=== PATIENT | male | born 1990 | race Caucasian/White ===

== ENCOUNTER → 2018-03-26 13:19 | Outpatient (CLI) | payer OTHER, SELFPAY ==
--- NOTE | 2018-03-26 13:22 | XR_ITS ---
XR shoulder RT 1V HISTORY: Right shoulder pain following injury ITS.REASON: axillary views ORDERING PHYSICIAN: Dharmesh Daugherty MD PATIENT AGE: 28 years Comparison: None FINDINGS: The glenohumeral joint has an unremarkable appearance. There is dislocation of the acromioclavicular joint as described in the AC joint report. IMPRESSION: Negative glenohumeral joint. Acromioclavicular dislocation
--- NOTE | 2018-03-26 13:36 | XR_ITS ---
XR AC joint BI CLINICAL INDICATION: Right shoulder pain following injury, acromioclavicular dislocation ITS.REASON: without weights ORDERING PHYSICIAN: Dharmesh Daugherty MD PATIENT AGE: 28 years Comparison: 03/23/2018 FINDINGS: Bilateral acromioclavicular joints are performed without weights. There is dislocation of the right acromioclavicular joint. The distal clavicle is displaced superiorly by approximately 3 cm and there is widening of the coracoclavicular joint space. The coracoclavicular joint space measures approximately 24 mm. IMPRESSION: Right acromioclavicular dislocation representing a type III acromioclavicular joint dislocation
== END ==
PROVIDERS: Visit Provider Orthopaedic Surgery
DX: S43.109A Unspecified dislocation of unspecified acromioclavicular joint, initial encounter (principal); S42.009A Fracture of unspecified part of unspecified clavicle, initial encounter for closed fracture
CPT/HCPCS: 73020; 73050

== ENCOUNTER → 2018-11-10 13:23 | Outpatient (CLI) | payer OTHER, SELFPAY ==
[2018-11-10 14:09] LABS: Alanine Aminotransferase 47 U/L (12-78); Albumin Level 3.7 gm/dL (3.4-5.0); Albumin/Globulin Ratio 1.1 (1.1-1.8); Alkaline Phosphatase 87 U/L (46-116); Anion Gap 14.5 mEq/L (5-15); Aspartate Amino Transferase 23 U/L (15-37); Bilirubin,Total 0.3 mg/dL (0.2-1.0); Blood Urea Nitrogen 20 mg/dL (7-18); Calcium 9.3 mg/dL (8.5-10.1); Carbon Dioxide 27 mmol/L (21.0-32.0); Chloride 103 mmol/L (98-107); Chol/HDL Ratio 2.1 (1-3.5); Cholesterol 158 mg/dL (140-200); Creatinine,Serum 0.78 mg/dL (0.70-1.30); Estimated Glomerular Filt Rate 117 ml/min (>60); GFR (African American) 141 ML/MIN (>60); Globulin 3.3 gm/dl (1.3-3.2); Glucose 98 mg/dL (74-106); HDL Cholesterol 76 mg/dL (27-67); LDL Cholesterol 73 mg/dL (0-130); Potassium 4.5 mmoL/L (3.5-5.1); Sodium 140 mmol/L (136-145); T4 (Thyroxine) 6.7 ug/dl (4.7-13.3); Thyroid Stimulating Hormone 1.76 uIU/ml (0.358-3.740); Triglycerides 46 mg/dL (30-200); VLDL Cholesterol 9 mg/dL (0-40)
[2018-11-10 14:15] LABS: Basophils % 0.5 % (0.1-2.0); Eosinophils # 0.2 K/mm3 (0.0-0.4); Eosinophils % 2.3 % (0.1-12.0); Hematocrit 46.8 % (42.0-52.0); Lymphocytes # 1.3 K/mm3 (0.7-4.5); Lymphocytes % 20.6 % (10-50); Mean Corpuscular HGB Conc 32.2 g/dL (31.8-35.4); Mean Corpuscular Hemoglobin 31.5 pg (27.0-31.2); Mean Corpuscular Volume 97.8 fl (80-94); Mean Platelet Volume 9.5 fl (7.4-10.4); Monocytes # 0.5 K/mm3 (0.1-1.0); Monocytes % 7.4 % (1.7-9.3); Neutrophils # 4.4 K/mm3 (1.8-7.8); Neutrophils % 69.2 % (37.0-80.0); Platelet Count 270 K/mm3 (142-424); Red Blood Count 4.78 M/mm3 (4.60-6.20); Red Cell Distribution Width 12.7 % (11.5-17.5); White Blood Count 6.4 K/mm3 (4.8-10.8)
[2018-11-11 08:58] LABS: Vitamin B12 338 pg/mL (232-1245)
[2018-11-11 09:31] LABS: Vitamin D 25 Hydroxy 23.2 ng/mL (30.0-100.0)
== END ==
PROVIDERS: Visit Provider Physician Assistant
DX: G80.9 Cerebral palsy, unspecified (principal); M79.604 Pain in right leg; M79.605 Pain in left leg
CPT/HCPCS: 80053; 80061; 82607; 82652; 84436; 84443; 85025

== ENCOUNTER 2024-09-27 16:24 | Emergency (ER) | payer OTHER, SELFPAY ==
[2024-09-27 16:25] VITALS: BP 131/100; PULSE 86; RESP 16; TEMP 36.5; O2SAT 98; BMI 43.8
--- NOTE | 2024-09-27 16:51 | ED_ITS ---
<Statement entered by Jon Guerin MD - 09/27/24 21:44> I was consulted by the MACRINA, and we discussed the complexity of the problems being addressed. I approved the treatment and management plan for this patient's care in the emergency department, thus performing a substantive portion of the medical decision making. Jon Guerin MD Discharge Plan Disposition Patient Disposition: Home, Self-Care Condition: Good Prescriptions Prescriptions: New levofloxacin 500 mg tablet 500 mg PO DAILY 7 Days Qty: 7 0RF metronidazole 500 mg tablet 500 mg PO BID 7 Days Qty: 14 0RF No Action prednisone 20 MG tablet 20 mg PO BID Qty: 10 0RF levofloxacin 500 MG tablet 500 mg PO DAILY Qty: 7 0RF Referrals Follow up/Referrals: Bhavesh Suazo II, MD [Staff Physician] - See instructions Provider,MD Maday [Primary Care Provider] - See instructions Activity Restrictions/Add. Instructions Additional Instructions/Restrictions: Referring you to gastroenterology for further workup. You likely need a colonoscopy however I will leave that determination between you and the application systems engineer. Follow-up with your PCP within 48 hours for recheck and evaluation.. Clinical Impressions Clinical Impression: Abdominal pain, acute Diarrhea Qualifiers: Diarrhea type: unspecified type Qualified Code(s): R19.7 - Diarrhea, unspecified Instructions Patient Instructions: DI for Acute Abdominal Pain Print Language Print Language: [place]at[place] Discharge ED Provider: Jon Guerin General Adult HPI General Chief complaint: Abdominal Pain Stated complaint: abd pain, diarrhea Time Seen by Provider: 09/27/24 16:51 History of Present Illness HPI narrative: Patient presents for evaluation of abdominal pain and diarrhea. Patient reports that he has had loose stool for approximately 1 month. It primarily is associated with eating. He has to go to the bathroom almost immediately after eating he states his stool is runny. He has not however had pain previously denies fever chills hemoptysis hematochezia melena nausea vomiting diarrhea. He reports that he has had 4-5 loose bowel movements with abdominal cramping in the last 24 hours however. Again no fever vomiting nausea hemoptysis hematochezia melena hematemesis noted. Related Data Previous Rx's ?Medication ?Instructions ?Recorded levofloxacin 500 mg tablet 500 mg PO DAILY #7 tabs 09/22/19 prednisone 20 mg tablet 20 mg PO BID #10 tabs 09/22/19 levofloxacin 500 mg tablet 500 mg PO DAILY 7 days #7 tabs 09/27/24 metronidazole 500 mg tablet 500 mg PO BID 7 days #14 tabs 09/27/24 Allergies Allergy/AdvReac Type Severity Reaction Status Date / Time No Known Allergies Allergy Verified 09/22/19 05:17 [facility] Disclaimer: The information contained in this section may have been updated after the patient was seen, as this information can be updated by other users. Medical History (Updated 09/27/24 @ 19:43 by LILLIE Jorgensen) Vitamin D deficiency Social History Smoking Status: Current every day smoker tobacco type: cigarettes packs per day: 1 and smokeless tobacco second hand exposure: Yes alcohol intake: never current occupational status: unemployed Travel in the last 8 weeks: None Have you lived/traveled outside US in past 30 days?: No Contact w/someone who lives/traveled outside US past 30 days?: No Exposure to someone with infectious disease in past 14 days?: No Do you have a fever (greater than 100.4 F or 38 C)?: No Have you tested positive for COVID-19: No Exposed to someone with COVID-19 in past 14 days?: No Do you have a sore throat?: No Do you have a cough?: No Do you have any weakness?: No Do you have any diarrhea?: Yes Are you experiencing any unusual bleeding?: No Do you have any muscle aches/pain?: No Do you have any abdominal pain?: Yes Are you experiencing loss of taste or smell?: No Other Medical History Have you received the Flu Vaccine for this season: No Have you received the Pneumonia Vaccine: No ROS Obtained: Yes Systems reviewed as appropriate & no additional complaints except as documented Physical Exam General General appearance: alert and in no apparent distress Respiratory Respiratory exam: Present normal lung sounds bilaterally Cardiovascular Cardiovascular exam: Present regular rate Neurological Exam Neurological exam: Present alert and oriented X3 Medical Decision Making Medical Records Medical records reviewed: Yes I reviewed the patient's medical records. Screening: Per USPSTF and CDC recommendations, given the prevalence of disease in our region, it is our hospital?s policy to screen for HIV and viral Hepatitis for all patients aged 18 and over and those with ongoing risk factors. Erick Inquiry Pt receiving controlled substance: No Vital Signs: 09/27/24 16:25 09/27/24 18:53 09/27/24 20:42 Temperature 97.7 F 98.0 F Temperature Source Oral Oral Pulse Rate 87 91 H Pulse Rate [Left Radial] 86 Respiratory Rate 16 18 Blood Pressure 121/82 122/93 H Blood Pressure [Right Arm] 131/100 H Blood Pressure Mean [Right Arm] 110 Blood Pressure Source Automatic Cuff Blood Pressure Source [Right Arm] Automatic Cuff Blood Pressure Position Sitting Blood Pressure Position [Right Arm] Sitting 02 Sat by Pulse Oximetry 98 96 Oxygen Delivery Method Room Air Room Air Room Air Lab Data Lab results reviewed: Yes I reviewed the patient's lab results. Lab Results 09/27/24 17:45: WBC 14.5 H, RBC 5.04, Hgb 16.0, Hct 48.0, MCV 95.3 H, MCH 31.7 H , MCHC 33.3, RDW 13.1, Plt Count 291, MPV 9.1, Neut % (Auto) 82.6 H, Lymph % (Auto) 11.8, [place] % (Auto) 4.6, Eos % (Auto) 0.4, Baso % (Auto) 0.5, Neut # (Auto) 12.0 H, Lymph # (Auto) 1.7, [place] # (Auto) 0.7, Eos # (Auto) 0.1, Baso # (Auto) 0.1, Sodium 133 L, Potassium 4.3, Chloride 105, Carbon Dioxide 27, Anion Gap 5.3, BUN 14, Creatinine 0.80, Estimated Creat Clear 140, Estimated GFR 109, Est GFR ( Amer) 132, Glucose 101 H, Calcium 9.0, Magnesium 2.3, Total Bilirubin 0.6, AST 38, ALT 42, Alkaline Phosphatase 83, Total Protein 7.3, Albumin 4.4, Globulin 2.9, Albumin/Globulin Ratio 1.5, Lipase 59 09/27/24 20:20: Urine Color Yellow, Urine Appearance Clear, Urine pH 5.5, Ur Specific [place] 1.010, Urine Protein Negative, Urine Glucose (UA) Negative, Urine Ketones Negative, Urine Blood Negative, Urine Nitrate Negative, Urine Bilirubin Negative, Urine Urobilinogen 0.2, Ur Leukocyte Esterase Negative, Urine RBC 3-5, Urine WBC 3-5, Ur Squamous Epith Cells 3-5, Urine Bacteria 1+ 09/27/24 17:45 09/27/24 17:45 Orders (Tests/Meds): ED MEDICATIONS Discontinued Medications Generic Name Dose Route Start Last Admin Trade Name Freq PRN Reason Stop Dose Admin Iopamidol 75 ml 09/27/24 18:30 09/27/24 18:31 Iopamidol-370 (76%);100ml Bottle IV 09/27/24 18:31 75 ml ONCE ONE Administration Ondansetron HCl 4 mg 09/27/24 17:02 09/27/24 17:18 Ondansetron 4mg Odt SL 09/27/24 17:03 4 mg ONCE ONE Administration Sodium Chloride 10 ml 09/27/24 18:30 09/27/24 18:31 Sodium Chloride 0.9% 10ml Syr (Rad Only) IV 09/27/24 18:31 10 ml ONCE ONE Administration ORDERS Category Date Time Status CT abdomen pelvis w con Stat Cat Scan 09/27/24 17:02 Completed CBC w/Auto Diff [Complete Blood Count Auto Diff] Stat Lab 09/27/24 17:45 Completed CMP [Comprehensive Metabolic Panel] Stat Lab 09/27/24 17:45 Completed HIV (1&2) Antibody Rapid Stat Lab 09/27/24 17:45 Received Hep C Ab with Reflex to RNA Stat Lab 09/27/24 17:45 Received Lipase Stat Lab 09/27/24 17:45 Completed Magnesium Stat Lab 09/27/24 17:45 Completed UA [Urinalysis and Microscopic] Stat Lab 09/27/24 20:20 Completed Medical Decision Narrative: In summary patient is a 34-year-old male who presents to the emergency department for evaluation of abdominal pain and diarrhea. Patient is hemodynamically stable upon arrival, afebrile. Physical exam is remarkable for diffuse but more focally so left lower quadrant mild abdominal tenderness to palpation without rebound or guarding or rigidity. Bowel sounds normal active.. Differential diagnosis includes gastroenteritis versus diverticulitis versus urinary tract infection versus kidney stone etc. Initial workup will be conducted with hematologic labs urinalysis CT scan abdomen pelvis diarrhea panel. Initial interventions include crystalloid bolus Tylenol Zofran. Initial workup reviewed by me shows that his hematologic labs are nonactionable and my informal interpretation of the CT scan abdomen pelvis shows significant distal diverticulosis and some pericolonic stranding without perforation or significant bowel wall thickening. Urinalysis shows 3-5 red cells 3-5 white cells 3-5 epithelial cells and 1+ bacteria upon repeat evaluation patient reported significant improvement in his constitutional symptoms after initial intervention. Given this patient is appropriate for discharge with a prescription for Levaquin and Flagyl with first doses given here, referral to gastroenterology for further evaluation and care referral back to his PCP for recheck and strict return precautions Critical Care Critical Care Time Critical Care Time: No
--- NOTE | 2024-09-27 17:02 | CT_ITS ---
PROCEDURE INFORMATION: Exam: CT Abdomen And Pelvis With Contrast Exam date and time: 09/27/2024 6:18 PM Age: 34 years old Clinical indication: Other: Diarrhea abdominal pain TECHNIQUE: Imaging protocol: Computed tomography of the abdomen and pelvis with contrast. Radiation optimization: All CT scans at this facility use at least one of these dose optimization techniques: automated exposure control; mA and/or kV adjustment per patient size (includes targeted exams where dose is matched to clinical indication); or iterative reconstruction. Contrast material: ISOVUE; Contrast volume: 75 ml; Contrast route: IV; COMPARISON: CR PEL1V XR pelvis 1-2V 03/23/2018 3:18 PM FINDINGS: Liver: Punctate low-density liver lesions are too small to characterize. No hepatomegaly. Gallbladder and biliary ducts: Normal. No calcified stones. No ductal dilation. Pancreas: Normal. No ductal dilation. Spleen: Normal. No splenomegaly. Adrenal glands: Normal. No mass. Kidneys and ureters: Punctate low-density lesion in the upper pole of the left kidney is too small to characterize. No other lesions. No hydronephrosis. Stomach and bowel: Mild distal colonic diverticulosis without diverticulitis. No dilated or thickened bowel loops. Appendix: No evidence of appendicitis. Intraperitoneal space: Unremarkable. No free air. No significant fluid collection. Vasculature: Unremarkable. No abdominal aortic aneurysm. Lymph nodes: Calcified lymph nodes in the right hilum. No adenopathy. Urinary bladder: Unremarkable as visualized. Reproductive: Unremarkable as visualized. Bones/joints: Unremarkable. No acute fracture. Soft tissues: Small fat containing bilateral inguinal hernias, larger on the right. Small fat containing umbilical hernia. IMPRESSION: No acute findings. COMMENTS: Consistent with the [employer]'s Incidental Findings Committee white paper (J Am Raine Radiol 2018): Any incidental renal lesion less than 1 cm or classified as too small to characterize, or any incidental cystic renal lesion characterized as simple-appearing, is likely benign. No follow-up imaging is recommended for these lesions per consensus recommendations based on imaging criteria.
[2024-09-27] MEDS: ONDANSETRON 4MG ODT 4 MG SL (17:18)
[2024-09-27 18:02] LABS: Basophils # 0.1 K/mm3 (0-0.2); Basophils % 0.5 % (0.1-2.0); Eosinophils # 0.1 K/mm3 (0.0-0.4); Eosinophils % 0.4 % (0.1-12.0); Lymphocytes # 1.7 K/mm3 (0.7-4.5); Lymphocytes % 11.8 % (10-50); Mean Corpuscular HGB Conc 33.3 g/dL (31.8-35.4); Mean Corpuscular Hemoglobin 31.7 pg (27.0-31.2); Mean Corpuscular Volume 95.3 fl (80-94); Mean Platelet Volume 9.1 fl (7.4-10.4); Monocytes # 0.7 K/mm3 (0.1-1.0); Monocytes % 4.6 % (1.7-9.3); Neutrophils % 82.6 % (37.0-80.0); Platelet Count 291 K/mm3 (142-424); Red Blood Count 5.04 M/mm3 (4.60-6.20); Red Cell Distribution Width 13.1 % (11.5-17.5); White Blood Count 14.5 K/mm3 (4.8-10.8)
[2024-09-27 18:04] LABS: Albumin Level 4.4 g/dl (3.5-5.0); Chloride 105 mmol/L (98-107); Sodium 133 mmol/L (136-145)
[2024-09-27 18:05] LABS: Potassium 4.3 mmoL/L (3.5-5.1)
[2024-09-27 18:07] LABS: Alanine Aminotransferase 42 U/L (12-78); Anion Gap 5.3 mEq/L (5-15); Aspartate Amino Transferase 38 U/L (17-59); Blood Urea Nitrogen 14 mg/dl (9-20); Carbon Dioxide 27 mmol/L (22.0-30.0); Creatinine Clearance Estimated 140 mL/min (50-200); Estimated Glomerular Filt Rate 109 ml/min (>60); GFR (African American) 132 ML/MIN (>60)
[2024-09-27 18:08] LABS: Albumin/Globulin Ratio 1.5 (1.1-1.8); Alkaline Phosphatase 83 U/L (38-126); Bilirubin,Total 0.6 mg/dl (0.2-1.3); Globulin 2.9 g/dL (1.3-3.2); Glucose 101 mg/dl (74-100); Lipase 59 U/L (23-300); Magnesium 2.3 mg/dl (1.6-2.3); Total Protein,Serum 7.3 g/dl (6.3-8.2)
[2024-09-27] MEDS: SODIUM CHLORIDE 0.9% 10ML SYR (RAD ONLY) 10 ML IV (18:31)
[2024-09-27] MEDS: IOPAMIDOL-370 (76%);100ML BOTTLE 75 ML IV (18:31)
[2024-09-27 18:53] VITALS: BP 121/82; PULSE 87; O2SAT 96
--- NOTE | 2024-09-27 19:05 | PC.NURSE ---
pt was setting in chair no needs at this time
[2024-09-27 20:26] LABS: Microscopic, Urine URINE MICROSCOPIC (MICROSCOPIC)
[2024-09-27 20:36] LABS: Appearance,Urine CLEAR (Clear); Bilirubin,Urine Negative (Negative); Blood, Urine Negative (Negative); Color,Urine YELLOW (Yellow); Glucose,Urine (UA) Negative (Negative); Ketones,Urine Negative (Negative); Leukocyte Esterase,Urine Negative (Negative); Nitrate,Urine Negative (Negative); PH,Urine 5.5 (5.0-8.5); Protein,Urine Negative (Negative); Urobilinogen,Urine 0.2 EU/dl (0.2)
[2024-09-27 20:42] VITALS: BP 122/93; PULSE 91; RESP 18; TEMP 36.7; O2SAT 97
[2024-09-27 21:04] LABS: Bacteria,Urine 1+ /lpf
[2024-09-28 11:34] LABS: HIV Combo NEGATIVE (Negative)
[2024-09-29 08:48] LABS: HCV Ab Non Reactive (Non Reactive)
== END 2024-09-27 20:45 | disposition home or self-care (01) ==
PROVIDERS: Physician Assistant; Emergency Provider Emergency Medicine
DX: R10.9 Unspecified abdominal pain (principal); R19.7 Diarrhea, unspecified
CPT/HCPCS: 74177; 80053; 81001; 83690; 83735; 85025; 86803; 87389; 99285; Q0162; Q9967

== ENCOUNTER 2024-11-23 22:53 | Observation (INO) | payer OTHER, SELFPAY ==
--- NOTE | 2024-11-23 22:51 | ECG_ITS ---
APPROVED REPORT Exam: Resting ECG HR:88 bpm ECG Measurements Heart Rate 88 AXES LA 140 P 68 QRSd 82 QRS 62 QT 332 T 57 QTc 377 Conclusion SINUS RHYTHM WITH SINUS ARRHYTHMIA NORMAL ECG No STEMI Electronically signed by : CINDY JUÁREZ, 11/24/2024 07:16:40
[2024-11-23 22:54] VITALS: BP 142/103; PULSE 88; RESP 20; TEMP 36.4; O2SAT 97; BMI 36.6
[2024-11-23 22:59] VITALS: PULSE 88
[2024-11-23 23:00] VITALS: BP 149/95; PULSE 91; RESP 18; O2SAT 97
--- NOTE | 2024-11-23 23:08 | XR_ITS ---
PROCEDURE INFORMATION: Exam: XR Chest Exam date and time: 11/23/2024 11:05 PM Age: 34 years old Clinical indication: Pain; Chest pressure; Additional info: L upper chest pain TECHNIQUE: Imaging protocol: Radiologic exam of the chest. Views: 2 views. COMPARISON: CR XR CHEST 2V 09/22/2019 5:33 AM FINDINGS: Lungs: Unremarkable. No consolidation. Pleural spaces: Unremarkable. No pleural effusion. No pneumothorax. Heart/Mediastinum: Unremarkable. No cardiomegaly. Bones/joints: Healed fracture distal right clavicle. IMPRESSION: No acute cardiopulmonary findings.
[2024-11-23 23:12] LABS: Basophils # 0.1 K/mm3 (0-0.2); Basophils % 0.8 % (0.1-2.0); Eosinophils # 0.2 K/mm3 (0.0-0.4); Eosinophils % 1.9 % (0.1-12.0); Hematocrit 46.2 % (42.0-52.0); Hemoglobin 15.4 g/dL (14.1-18.0); Lymphocytes # 2.5 K/mm3 (0.7-4.5); Mean Corpuscular HGB Conc 33.3 g/dL (31.8-35.4); Mean Corpuscular Hemoglobin 31.2 pg (27.0-31.2); Mean Corpuscular Volume 93.7 fl (80-94); Mean Platelet Volume 11.7 fl (7.4-10.4); Monocytes # 0.7 K/mm3 (0.1-1.0); Monocytes % 7.6 % (1.7-9.3); Neutrophils % 63.5 % (37.0-80.0); Platelet Count 294 K/mm3 (142-424); Red Blood Count 4.93 M/mm3 (4.60-6.20); Red Cell Distribution Width 12.3 % (11.5-17.5); White Blood Count 9.5 K/mm3 (4.8-10.8)
[2024-11-23 23:14] VITALS: BP 149/95; PULSE 95; RESP 16; O2SAT 99
[2024-11-23] MEDS: NITROGLYCERIN 0.4MG SL TABLET 0.4 MG SL ×2 (23:14→23:46)
[2024-11-23 23:15] LABS: Albumin Level 4.2 g/dl (3.5-5.0); Chloride 104 mmol/L (98-107); Sodium 141 mmol/L (136-145)
[2024-11-23] MEDS: ASPIRIN 81MG CHEWABLE TABLET 324 MG PO (23:15)
--- NOTE | 2024-11-23 23:15 | PC.NURSE ---
Pt ambulatory to CT scan
[2024-11-23 23:16] LABS: Potassium 4.1 mmoL/L (3.5-5.1)
[2024-11-23 23:18] LABS: Alanine Aminotransferase 40 U/L (12-78); Albumin/Globulin Ratio 1.6 (1.1-1.8); Alkaline Phosphatase 75 U/L (38-126); Anion Gap 11.1 mEq/L (5-15); Aspartate Amino Transferase 36 U/L (17-59); Bilirubin,Total 0.3 mg/dl (0.2-1.3); Blood Urea Nitrogen 13 mg/dl (9-20); Carbon Dioxide 30 mmol/L (22.0-30.0); Creatinine Clearance Estimated 160 mL/min (50-200); Estimated Glomerular Filt Rate 95 ml/min (>60); GFR (African American) 116 ML/MIN (>60); Globulin 2.7 g/dL (1.3-3.2); Total Protein,Serum 6.9 g/dl (6.3-8.2)
[2024-11-23 23:19] LABS: Calcium 8.9 mg/dl (8.4-10.2); Glucose 101 mg/dl (74-100)
--- NOTE | 2024-11-23 23:25 | ED_ITS ---
Discharge Plan Disposition Patient Disposition: Admitted Prescriptions Prescriptions: No Action No Known Home Medications Referrals Follow up/Referrals: Provider,Referral, [Primary Care Provider] - See instructions Clinical Impressions Clinical Impression: Atypical chest pain Stand Alone Forms Stand Alone Forms: Work/School Release Print Language Print Language: Indian Discharge ED Provider: Sommer Ritchie General Chief Complaint: Chest Pain Stated Complaint: Chest pain Time Seen by Provider: 11/23/24 23:03 Mode of Arrival: Ambulatory Source of Information: Patient Limitations: No Limitations Description of Symptoms (Recalled from ER Triage Doc. by RN): pt presents with c/o left sided constant chest pain with associated numbness and tinging to left arm hand that began approx 2 hours ago while picking up his child. Denies N/V. Rates pain 05/22 Reports increase in SOA from his normal. History of Present Illness HPI narrative: 34-year-old male presents to the ER with complaints of approximately 8 hours of left-sided chest pain, but 2 hours prior to arrival the pain began radiating to his left arm and the left arm felt tingly. He reports he was fairly active today before the chest pain started, he reports that the activity did not cause the chest pain. He states around 3 PM, 8 hours prior to arrival, he started having sharp left upper chest pain. He states he was able to tolerate it and did not think much of it. He states this evening after picking up his kid and sitting down at the table for dinner he noticed the pain going down the left arm with associated tingling sensation. He states the left upper chest pain was worsening at that time. He denies nausea, vomiting, dizziness, headache, radiation to the back or jaw, no cough, congestion, fevers, chills, or other associated symptoms. 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 He states his baseline shortness of breath is not changed from normal. Related Data Home Medications ?Medication ?Instructions ?Recorded ?Confirmed No Known Home Medications 11/23/24 11/23/24 Allergies Allergy/AdvReac Type Severity Reaction Status Date / Time No Known Allergies Allergy Verified 09/22/19 05:17 [facility] Disclaimer: The information contained in this section may have been updated after the patient was seen, as this information can be updated by other users. Medical History (Updated 11/24/24 @ 00:13 by Sommer Ritchie MD) Vitamin D deficiency Social History Smoking Status: Never smoker second hand exposure: Yes alcohol intake: never current occupational status: unemployed Travel in the last 8 weeks: None Other Medical History Have you received the Flu Vaccine for this season: No Have you received the Pneumonia Vaccine: No ROS Obtained: Yes Systems reviewed as appropriate & no additional complaints except as documented per HPI Physical Exam General General appearance: alert, in no apparent distress and obese Head Head exam: atraumatic and normocephalic Eye Eye exam: Present PERRL, EOMI and other (Strabismus present, baseline) ENT ENT exam: Present mucous membranes moist Neck Neck exam: Present normal inspection and full ROM Chest Chest inspection: Present symmetric chest wall rise; Absent tenderness (No reproducible chest wall tenderness) Respiratory Respiratory exam: Present normal lung sounds bilaterally; Absent respiratory distress, wheezes or stridor Cardiovascular Cardiovascular exam: Present regular rate and normal rhythm Abdominal Exam Abdominal exam: Present soft; Absent distention, tenderness, guarding or rebound Extremities Exam Extremities exam: Present full ROM; Absent edema Neurological Exam Neurological exam: Present alert, oriented X3 and other (No pronator drift); Absent motor sensory deficit (5 out of 5 strength in all extremities, no sensory deficits despite patient complaining of numbness and tingling in the left upper extremity. 2 point discrimination intact, proprioception intact, NIH 0, no deficits) Psychiatric Psychiatric exam: Present normal affect and normal mood Skin Skin exam: Present warm and dry HEART Score HEART Score HEART Score assessment performed?: Yes History (anamnesis): Slightly suspicious ECG: Normal Age: <45 years Risk factors: 1-2 risk factors Troponin: </= normal limit HEART Score: 1 Critical Care Critical Care Time Critical Care Time: No Medical Decision Making Medical Records Medical records reviewed: Yes I reviewed the patient's medical records. Erick Inquiry Pt receiving controlled substance: No Vital Signs Vital Signs: 11/23/24 22:54 11/23/24 22:59 11/23/24 23:00 Temperature 97.5 F L Temperature Source Temporal Artery Scan Pulse Rate 88 91 H Pulse Rate [Radial] 88 Respiratory Rate 20 18 Blood Pressure 149/95 H Blood Pressure [Right Arm] 142/103 H Blood Pressure Mean [Right Arm] 116 Blood Pressure Source [Right Arm] Automatic Cuff Blood Pressure Position [Right Arm] Sitting 02 Sat by Pulse Oximetry 97 97 Oxygen Delivery Method Room Air 11/23/24 23:14 11/23/24 23:30 11/23/24 23:44 Temperature Temperature Source Pulse Rate 95 H 94 H 84 Pulse Rate [Radial] Respiratory Rate 16 20 18 Blood Pressure 149/95 H 138/97 H 133/90 Blood Pressure [Right Arm] Blood Pressure Mean [Right Arm] Blood Pressure Source [Right Arm] Blood Pressure Position [Right Arm] 02 Sat by Pulse Oximetry 99 95 97 Oxygen Delivery Method Room Air Lab Data Labs: Lab Results 11/23/24 22:55: WBC 9.5, RBC 4.93, Hgb 15.4, Hct 46.2, MCV 93.7, MCH 31.2, MCHC 33.3, RDW 12.3, Plt Count 294, MPV 11.7 H, Neut % (Auto) 63.5, Lymph % (Auto) 26.0, [place] % (Auto) 7.6, Eos % (Auto) 1.9, Baso % (Auto) 0.8, Neut # (Auto) 6.0, Lymph # (Auto) 2.5, [place] # (Auto) 0.7, Eos # (Auto) 0.2, Baso # (Auto) 0.1, Sodium 141, Potassium 4.1, Chloride 104, Carbon Dioxide 30, Anion Gap 11.1, BUN 13, Creatinine 0.90, Estimated Creat Clear 160, Estimated GFR 95, Est GFR ( Amer) 116, Glucose 101 H, Calcium 8.9, Total Bilirubin 0.3, AST 36, ALT 40, Alkaline Phosphatase 75, Troponin I < 0.01, Total Protein 6.9, Albumin 4.2, Globulin 2.7, Albumin/Globulin Ratio 1.6 11/23/24 22:55 11/23/24 22:55 Response Orders (Tests/Meds): ED MEDICATIONS Discontinued Medications Generic Name Dose Route Start Last Admin Trade Name Clintonq PRN Reason Stop Dose Admin Aspirin 324 mg 11/23/24 23:08 11/23/24 23:15 Aspirin 81mg Chewable Tablet PO 11/23/24 23:09 324 mg ONCE ONE Administration Nitroglycerin 0.4 mg 11/23/24 23:08 11/23/24 23:14 Nitroglycerin 0.4mg Sl Tablet SL 11/23/24 23:09 0.4 mg ONCE ONE Administration Nitroglycerin 0.4 mg 11/23/24 23:42 11/23/24 23:46 Nitroglycerin 0.4mg Sl Tablet SL 11/23/24 23:43 0.4 mg ONCE ONE Administration ORDERS Category Date Time Status CXR 2 view (NOT portable) [XR chest 2V] Stat Exams 11/23/24 23:08 Completed CBC w/Auto Diff [Complete Blood Count Auto Diff] Stat Lab 11/23/24 22:55 Completed CMP [Comprehensive Metabolic Panel] Stat Lab 11/23/24 22:55 Completed Trop I [Troponin I] Stat Lab 11/23/24 22:55 Completed Troponin I Q3H Lab 11/24/24 02:15 Ordered Troponin I Q3H Lab 11/24/24 05:15 Ordered MDM Narrative Medical Decision Narrative: In summary, this 34-year-old male with history of cerebral palsy, asthma which are comorbidities of current condition and increased overall morbidity presents to the emergency department today with left-sided chest pain radiating to left upper extremity. On initial evaluation patient is hemodynamically stable, afebrile, no reproducible chest pain on exam, cardiopulmonary exam is benign with good air movement, saturating well on room air, NIH 0, GCS 15, no neurologic deficits despite patient complaining of numbness and tingling in the left upper extremity he does not have identifiable sensory deficits, light touch, temperature, proprioception and 2 point discrimination are intact. Differential diagnosis includes but is not limited to ACS, I considered PE but patient is PERC negative, also considered esophageal spasm, electrolyte abnormality, muscle spasm, MSK etiology. Based on these concerns, I ordered serum labs, cardiac workup, chest x-ray. ECG personally interpreted demonstrates normal sinus rhythm, rate 88, normal axis, normal MO and QTc, no STEMI, normal-appearing ECG. Patient received aspirin, single dose sublingual nitro initially for treatment. Labs personally reviewed demonstrate no leukocytosis or anemia, platelets normal, CMP nonactionable with normal electrolytes, good kidney and liver function, initial troponin undetectably low less than 0.01. XR personally interpreted demonstrates no acute intrathoracic abnormality, no lobar infiltrate, no pneumothorax, see radiology read for final interpretation. On reassessment patient reports that the pain in his chest has been somewhat relieved by the nitroglycerin but he still does have pain. His vitals tolerated the nitro well and he has not had any side effects such as headache, additional nitroglycerin being administered to the patient for symptomatic treatment. Second nitro was tolerated well by the patient. His vitals remained stable. He states his breathing feels improved though he never complained of shortness of breath to me. He does still report having some chest pain but reports the pain in his arm is improving since receiving the nitro. Since he has taken multiple doses of nitro with some modification of his pain but not complete resolution, despite his reassuring workup thus far I do believe patient requires admission to the hospital for continued workup, monitoring, and management. I discussed this with the patient who is concerned that his has to work in the morning and they have multiple children at home that he typically takes care of during the day. We discussed this with his and are providing her with a work note. By phone I updated her on the patient's status, she understands and was grateful for the update. I discussed this case with the hospitalist and reviewed his labs and reassuring imaging but persistent pain. Hospitalist accepted the patient for admission, he was admitted in stable condition.
[2024-11-23 23:30] VITALS: BP 138/97; PULSE 94; RESP 20; O2SAT 95
[2024-11-23 23:35] LABS: Troponin I < 0.01 ng/ml (0.00-0.034)
[2024-11-23 23:44] VITALS: BP 133/90; PULSE 84; RESP 18; O2SAT 97
[2024-11-24] VITALS (10 sets, daily range): BP systolic 117–142; BP diastolic 62–88; PULSE 70–100; RESP 16–18; TEMP 36.4–36.7; O2SAT 97–100; BMI 43.6
--- NOTE | 2024-11-24 00:23 | PC.NURSE ---
report given to second floor RN, Patient is stable but rates pain 8/10 after second dose of Nitro. Patient states he is able to breath easier. Patient vitals stable upon admission. AO x 4, GCS 15.
--- NOTE | 2024-11-24 00:27 | PC.NURSE ---
Patient arrived to floor via wheelchair from ED at 00:25.
--- NOTE | 2024-11-24 00:31 | P.HP_ITS ---
<Statement entered by Melvin Yeung MD - 11/30/24 14:21> I personally examined the patient and agree with the plan of care outlined by the [facility]. History of Present Illness *Admission Date: 11/24/24 *Reason for visit:: Chest pain *History of present illness: This is a 34-year-old male who has a past medical history significant for bronchitis, vitamin D deficiency, and cerebral palsy who presents with a chief complaint of chest pain. Due to patient's symptoms, he presented to the emergency room for evaluation. While in the emergency room, chest x-ray was negative for any acute cardiopulmonary process. Patient's initial troponin was negative. EKG revealed a sinus arrhythmia, QTc of 377, normal axis. EKG failed to reveal any ST segment or T wave abnormalities. Patient did receive nitro while in the emergency room and did have some improvement of his chest pain and shortness of breath. As a result, patient has been admitted for further management. During my evaluation patient, patient states his chest pain started around 1500 hrs. and has been ongoing for the last 8 hours. He reports that he has a left chest wall pain that radiates to the right arm with some tingling, has some mild shortness of breath that was relieved with nitro, and has a ongoing duration. Patient does voice having a family history of heart disease but has no known cardiac complications himself. Patient states he has chronic lymphedema to the right lower extremity and he is denying any PND, orthopnea, lightheadedness, dizziness, fever, chills, rigors, nausea, vomiting, diarrhea. Patient did voice have an ischemic workup while he was in high school but no further cardiac evaluation since then. Additional pertinent vitals obtained include blood glucose of 101. PFSH [facility] Disclaimer: The information contained in this section may have been updated after the patient was seen, as this information can be updated by other users. Medical History Vitamin D deficiency Family History Other Family history of COPD (chronic obstructive pulmonary disease) Family history of diabetes mellitus Family history of heart disease Social History Smoking Status: Never smoker second hand exposure: Yes alcohol intake: never current occupational status: unemployed Travel in the last 8 weeks: None Other Medical History Have you received the Flu Vaccine for this season: No Have you received the Pneumonia Vaccine: No Review of Systems Review of Systems Review of systems:: pertinent systems reviewed and negative unless documented below Constitutional Constitutional: Reports system reviewed and no additional complaints, except as documented Eyes Eyes: Reports system reviewed and no additional complaints, except as documented ENT Ears, Nose, Mouth, and Throat: Reports system reviewed and no additional complaints, except as documented *Cardiovascular Cardiovascular: Reports chest pain, Reports chest pain at rest and Reports dys pnea *Respiratory Respiratory: Reports dyspnea *Gastrointestinal Gastrointestinal: Reports system reviewed and no additional complaints, except as documented *Genitourinary Genitourinary: Reports system reviewed and no additional complaints, except as d ocumented *Musculoskeletal Musculoskeletal: Reports system reviewed and no additional complaints, except as documented Integumentary/Breasts Skin/Breast: Reports system reviewed and no additional complaints, except as documented *Neurologic Neurologic: Reports system reviewed and no additional complaints, except as documented Psychiatric Psychiatric: Reports system reviewed and no additional complaints, except as documented Endocrine Endocrine: Reports system reviewed and no additional complaints, except as documented Hematologic/Lymphatic Hematologic/Lymphatic: Reports system reviewed and no additional complaints, except as documented Allergic/Immunologic Allergic/Immunologic: Reports system reviewed and no additional complaints, except as documented Meds Home Medications and Allergies Home Medications ?Medication ?Instructions ?Recorded ?Confirmed ?Type No Known Home Medications 11/24/24 11/24/24 History New Prescriptions to Start Prescriptions: Allergies Allergy/AdvReac Type Severity Reaction Status Date / Time No Known Allergies Allergy Verified 09/22/19 05:17 Exam Data for Last 24 hours Vital signs and Labs for Last 24 Hours: Temp Pulse Resp BP Pulse Ox O2 Del Method 98.1 F 80 16 123/88 97 Room Air 11/24/24 00:18 11/24/24 00:18 11/24/24 00:18 11/24/24 00:18 11/23/24 23:44 11/24/24 00:18 Laboratory Results - last 24 hr 11/23/24 22:55: WBC 9.5, RBC 4.93, Hgb 15.4, Hct 46.2, MCV 93.7, MCH 31.2, MCHC 33.3, RDW 12.3, Plt Count 294, MPV 11.7 H, Neut % (Auto) 63.5, Lymph % (Auto) 26.0, [place] % (Auto) 7.6, Eos % (Auto) 1.9, Baso % (Auto) 0.8, Neut # (Auto) 6.0, Lymph # (Auto) 2.5, [place] # (Auto) 0.7, Eos # (Auto) 0.2, Baso # (Auto) 0.1, Sodium 141, Potassium 4.1, Chloride 104, Carbon Dioxide 30, Anion Gap 11.1, BUN 13, Creatinine 0.90, Estimated Creat Clear 160, Estimated GFR 95, Est GFR ( Amer) 116, Glucose 101 H, Calcium 8.9, Total Bilirubin 0.3, AST 36, ALT 40, Alkaline Phosphatase 75, Troponin I < 0.01, Total Protein 6.9, Albumin 4.2, Globulin 2.7, Albumin/Globulin Ratio 1.6 I & O for Last 24 hours: Intake & Output 11/21/24 11/22/24 11/23/24 11/24/24 23:59 23:59 23:59 23:59 Weight 99.79 kg Constitutional Constitutional: no acute distress and cooperative *Routine HEENT Exam Head: Present normocephalic and atraumatic Eye: Present PERRL ENT: Present mucous membranes moist *Routine Neck Exam Neck: Present full ROM and trachea midline Routine Chest/Breast/Axilla Exam Chest wall: Present tenderness Comments: Patient has tenderness to left chest wall with palpation *Routine Respiratory Exam Respiratory: Present normal respiratory effort, able to speak in complete sentences and symmetric chest movement *Routine Cardiovascular Exam Cardiovascular: Present RRR, Normal S1 and Normal S2 *Routine Abdominal Exam Abdominal: Present soft and normoactive bowel sounds *Routine Rectal Exam Rectal:: deferred *Routine Genitalia Exam Genitalia:: deferred *Routine Extremities Exam Extremities: Present edema Comments: Lymphedema to right lower extremity Routine Back/Spine/Pelvis Exam Back/Spine: Present full ROM *Routine Skin Exam Skin: Present dry and warm *Routine Neurological Exam Neurological: Present alert, oriented X3, CN II-XII intact and normal speech Routine Psychiatric Exam Psychiatric: Present normal affect, normal thought process, cooperative, good insight and good judgment H&P: Result Impressions This is a 34-year-old male who presents with chest pain while at rest. Current heart score is 0. He did receive nitro while in the emergency room that improved his shortness of breath. Patient has minimal risk factors for ACS; however, with chest pain at rest, rules in for angina that is unstable Assessment and Plan *Assessment and plan (1) Chest pain: Status: Acute Qualifiers: Chest pain type: unspecified Qualified Code(s): R07.9 - Chest pain, unspecified Category: Medical Code(s): R07.9 - Chest pain, unspecified (2) Angina at rest: Status: Acute Category: Medical Code(s): I20.89 - Other forms of angina pectoris Plan Assessment: Chest pain -Patient has a heart score of 0 -Will consult cardiology in the a.m. -Obtain 2D echo -Will trend troponin every 6 -Obtain D-dimer -Patient did receive full-strength aspirin -Will consider 81 mg daily-will discuss with attending Stable versus unstable angina -Will provide Nitropaste as needed for chest pain Plan: Admit patient to the MedSur unit on telemetry Activity as tolerated Vital signs every 4 hours Consult cardiology in a.m. Regular diet CBC/BMP daily Lipid panel in a.m. 40 mg enoxaparin subcu for DVT prophylax 5 mg [place] p.o. every 4 hours PMR pain 2 mg morphine IV push every 4 hours. Severe pain 4 mg Zofran IV push every 8 hours pain nausea vomit Full code I will discuss this case with attending physician Dr. Yeung and I look forward to more input
[2024-11-24 04:06] LABS: Troponin I < 0.01 ng/ml (0.00-0.034)
[2024-11-24] MEDS: HYDROCODONE/APAP 5/325 MG TABLET 1 TAB PO (04:26)
--- NOTE | 2024-11-24 04:44 | PC.NURSE ---
Pt reports to admitting nurse that he is supposed to be taking BP med ( does not know the name ) an inhaler ( purple and white but does not know the name ) and has been on Bipap in the past but not now. He has requested assistance during hospitalization for resources upon discharge
[2024-11-24 06:53] LABS: Chloride 105 mmol/L (98-107); Potassium 4.1 mmoL/L (3.5-5.1); Sodium 137 mmol/L (136-145)
[2024-11-24 06:56] LABS: Anion Gap 9.1 mEq/L (5-15); Blood Urea Nitrogen 14 mg/dl (9-20); Carbon Dioxide 27 mmol/L (22.0-30.0); Cholesterol 142 mg/dl (140-200); Creatinine Clearance Estimated 122 mL/min (50-200); Estimated Glomerular Filt Rate 128 ml/min (>60); GFR (African American) 154 ML/MIN (>60); Triglycerides 111 mg/dl (30-150); VLDL Cholesterol 22 mg/dL (0-40)
[2024-11-24 06:57] LABS: Calcium 8.6 mg/dl (8.4-10.2); Chol/HDL Ratio 3.2 (1-3.5); Glucose 98 mg/dl (74-100); HDL Cholesterol 44 mg/dl (40-60)
[2024-11-24 07:08] LABS: Direct LDL Cholesterol 58.63 mg/dL (100-129)
[2024-11-24 07:11] LABS: Basophils # 0.1 K/mm3 (0-0.2); Basophils % 0.7 % (0.1-2.0); Eosinophils # 0.2 K/mm3 (0.0-0.4); Eosinophils % 1.9 % (0.1-12.0); Hematocrit 44.2 % (42.0-52.0); Hemoglobin 14.5 g/dL (14.1-18.0); Lymphocytes # 2.3 K/mm3 (0.7-4.5); Lymphocytes % 26.6 % (10-50); Mean Corpuscular HGB Conc 32.8 g/dL (31.8-35.4); Mean Corpuscular Hemoglobin 30.7 pg (27.0-31.2); Mean Corpuscular Volume 93.4 fl (80-94); Mean Platelet Volume 11.9 fl (7.4-10.4); Monocytes # 0.6 K/mm3 (0.1-1.0); Monocytes % 7.2 % (1.7-9.3); Neutrophils # 5.4 K/mm3 (1.8-7.8); Neutrophils % 63.4 % (37.0-80.0); Platelet Count 277 K/mm3 (142-424); Red Blood Count 4.73 M/mm3 (4.60-6.20); Red Cell Distribution Width 12.3 % (11.5-17.5); White Blood Count 8.5 K/mm3 (4.8-10.8)
[2024-11-24] MEDS: ENOXAPARIN 40MG/0.4ML SYRINGE 40 MG SUBCUT (08:10)
--- NOTE | 2024-11-24 08:13 | EXP.CARD.CON ---
History of Present Illness History of Present Illness Consult date: 11/24/24 Requesting physician: Devin Brennan Consult reason: chest pain Chief complaint: chest pain History of present illness: 34-year-old white male with a history of cerebral palsy and high blood pressure but without known cardiovascular disease presenting to the emergency room last night complaining of chest pain. Patient states he was making dinner with his family when he felt tingling and numbness in his left hand. He laid down but symptoms did not improve. When he got up a few minutes later he felt severe aching pain in the left chest which dropped him to his knees. He and his drove to the emergency room for evaluation. Patient states his chest pain was constant for hours, worse laying flat and worse with deep breathing. He subjectively had some mild improvement with nitroglycerin x 2. EKG shows sinus rhythm without ischemia or ectopy. Troponins x 2 are normal. CXR unremarkable. I do not see a D-Dimer in the chart. He was admitted overnight for observation. This morning patient states he had another episode of chest pain which was resolved with analgesics. He continues to have pain if he lays flat or tries to take a deep breath. Pain is also recent producible on palpation of the chest wall. Patient states his mother of CHF in her 50s. 2D echo is pending here. [facility] Disclaimer: The information contained in this section may have been updated after the patient was seen, as this information can be updated by other users. Medical History Vitamin D deficiency Family History Other Family history of COPD (chronic obstructive pulmonary disease) Family history of diabetes mellitus Family history of heart disease Social History Smoking Status: Never smoker second hand exposure: Yes alcohol intake: never current occupational status: unemployed Travel in the last 8 weeks: None Review of Systems Constitutional Constitutional: Denies fatigue and Denies weakness Eyes Eyes: Denies loss of vision ENT Ears, Nose, Mouth, and Throat: Denies hearing loss *Cardiovascular Cardiovascular: Reports chest pain and Denies dyspnea *Respiratory Respiratory: Denies cough and Denies dyspnea *Gastrointestinal Gastrointestinal: Denies change in stool character, Denies nausea and Denies vomiting *Genitourinary Genitourinary: Denies difficulty urinating *Musculoskeletal Musculoskeletal: Denies muscle weakness Integumentary/Breasts Skin/Breast: Denies changing lesions *Neurologic Neurologic: Reports system reviewed and no additional complaints, except as documented, Denies loss of vision and Denies weakness Endocrine Endocrine: Denies fatigue Exam Data for Last 24 hours Vital signs and Labs for Last 24 Hours: Temp Pulse Resp BP Pulse Ox O2 Del Method 97.5 F L 82 16 142/80 H 100 Room Air 11/24/24 04:00 11/24/24 04:00 11/24/24 04:00 11/24/24 04:00 11/24/24 04:00 11/24/24 06:57 Laboratory Results - last 24 hr 11/23/24 22:55: WBC 9.5, RBC 4.93, Hgb 15.4, Hct 46.2, MCV 93.7, MCH 31.2, MCHC 33.3, RDW 12.3, Plt Count 294, MPV 11.7 H, Neut % (Auto) 63.5, Lymph % (Auto) 26.0, [place] % (Auto) 7.6, Eos % (Auto) 1.9, Baso % (Auto) 0.8, Neut # (Auto) 6.0, Lymph # (Auto) 2.5, [place] # (Auto) 0.7, Eos # (Auto) 0.2, Baso # (Auto) 0.1, Sodium 141, Potassium 4.1, Chloride 104, Carbon Dioxide 30, Anion Gap 11.1, BUN 13, Creatinine 0.90, Estimated Creat Clear 160, Estimated GFR 95, Est GFR ( Amer) 116, Glucose 101 H, Calcium 8.9, Total Bilirubin 0.3, AST 36, ALT 40, Alkaline Phosphatase 75, Troponin I < 0.01, Total Protein 6.9, Albumin 4.2, Globulin 2.7, Albumin/Globulin Ratio 1.6 11/24/24 03:40: Troponin I < 0.01 11/24/24 06:22: WBC 8.5, RBC 4.73, Hgb 14.5, Hct 44.2, MCV 93.4, MCH 30.7, MCHC 32.8, RDW 12.3, Plt Count 277, MPV 11.9 H, Neut % (Auto) 63.4, Lymph % (Auto) 26.6, [place] % (Auto) 7.2, Eos % (Auto) 1.9, Baso % (Auto) 0.7, Neut # (Auto) 5.4, Lymph # (Auto) 2.3, [place] # (Auto) 0.6, Eos # (Auto) 0.2, Baso # (Auto) 0.1, Sodium 137, Potassium 4.1, Chloride 105, Carbon Dioxide 27, Anion Gap 9.1, BUN 14, Creatinine 0.70 D, Estimated Creat Clear 122, Estimated GFR 128, Est GFR ( Amer) 154 D, Glucose 98, Calcium 8.6, Triglycerides 111, Cholesterol 142, LDL Cholesterol Direct 58.63 L, VLDL Cholesterol 22, HDL Cholesterol 44, Cholesterol/HDL Ratio 3.2 I & O for Last 24 hours: Intake & Output 11/21/24 11/22/24 11/23/24 11/24/24 23:59 23:59 23:59 23:59 Output Total 0 / 0 Balance 0 / 0 Weight 220 lb 261 lb 12.783 oz Constitutional Constitutional: no acute distress and cooperative *Routine HEENT Exam Eye: Present PERRL *Routine Respiratory Exam Respiratory: Present CTA bilaterally; Absent accessory muscle use, wheezes or crackles *Routine Cardiovascular Exam Cardiovascular: Present RRR, Normal S1 and Normal S2; Absent murmur, gallop or rubs Comments: Left chest pain reproducible on palpation *Routine Abdominal Exam Abdominal: Present soft; Absent tenderness *Routine Extremities Exam Extremities: Present pulses intact; Absent cyanosis or edema *Routine Skin Exam Skin: Present intact; Absent erythema or wounds *Routine Neurological Exam Neurological: Present alert and oriented X3 Routine Psychiatric Exam Psychiatric: Present cooperative Meds Home Medications and Allergies Home Medications ?Medication ?Instructions ?Recorded ?Confirmed ?Type pantoprazole 40 mg tablet,delayed 40 mg PO DAILY #30 tabs 11/24/24 Rx release (Protonix) New Prescriptions to Start Prescriptions: pantoprazole [Protonix] Melvin Yeung Allergies Allergy/AdvReac Type Severity Reaction Status Date / Time No Known Allergies Allergy Verified 09/22/19 05:17 Assessment and Plan *Assessment and plan (1) Pleuritic chest pain: Status: Acute Category: Medical Code(s): R07.81 - Pleurodynia Plan Pleuritic Chest Pain - low suspicion for ACS with constant reproducible pain, normal serial Trop and EKG - check 2D ECHO, D-Dimer, ESR, CRP - suspect pleurisy Htn - resume home meds Cerebral Palsy - pt is independent, able to ambulate freely and drive a car ADDENDUM: ECHO shows: Conclusion Technically difficult study due to poor accoustic windows. Normal LV systolic function. Mild RV dilation with mild reduction in RV function. No significant valvular stenosis or regurgitation. CP is believed to be noncardiac. He can be DC home from our standpoint.
[2024-11-24 08:30] LABS: D-Dimer 0.32 ug/mL (0.0-0.5)
[2024-11-24 08:46] LABS: Troponin I < 0.01 ng/ml (0.00-0.034)
[2024-11-24 09:00] LABS: Thyroid Stimulating Hormone 1.96 uIU/mL (0.465-4.68)
[2024-11-24 09:13] LABS: C-Reactive Protein 5.6 mg/L (0-4)
[2024-11-24 09:50] LABS: Erythrocyte Sedimentation Rate 7 mm/hr (0-15)
--- NOTE | 2024-11-24 11:16 | CA_ITS ---
APPROVED REPORT EXAM: Comprehensive 2D, Doppler, and color-flow Echocardiogram Quality Auditor: Edelmira Vitale RT(R) Ht: 5 ft 7 in Wt: 261lbs BSA: 2.26 BP: 123/88 mmHg Indications: CP, HTN, palpitations, numbness and tingling left arm, SOB, cerebral palsy, family history of HD. 2D Dimensions EF AP4 59.30 % GL Strain -16.5 % M-Mode Dimensions RVDd 3.07 cm (0.9-2.6) LA Diam 3.24 cm (1.9-4.0) LVDd 4.33 cm (3.5-5.7) LVDs 3.19 cm (3.5-5.7) IVSd 0.65 cm (0.6-1.1) PWd 0.76 cm (0.6-1.1) EF (Teich) 51.90% FS 26.30% EDV (Teich) 84.40 mL ESV (Teich) 40.60 mL LV Diastology E Decel Time 230 (160-240 msec) E/A Ratio 1.00 Mitral Valve MV A Velocity 79.0 (40-130 cm/s) E/A Ratio 1.00 Left Ventricle The left ventricle is normal size. The left ventricular systolic function is normal. The left ventricular ejection fraction is within the normal range. There is normal left ventricular wall thickness. There is normal LV segmental wall motion. The left ventricular diastolic function is normal. LVEF is 55%. Right Ventricle Right ventricle is mildly dilated. Right ventricle is mildly hypokinetic. Atria The left atrium size is normal. The right atrium size is normal. There is no Doppler evidence of interatrial shunt. Aortic Valve The aortic valve opens well. There is no aortic valvular stenosis. No aortic regurgitation is present. Mitral Valve The mitral valve is normal in structure. No evidence of mitral valve stenosis. Trace mitral regurgitation. Tricuspid Valve Tricuspid valve is grossly normal in structure and function. Trace tricuspid regurgitation. There is insufficient TR jet to estimate RVSP. Pulmonic Valve The pulmonary valve is normal in structure. Trace pulmonic regurgitation. Great Vessels The aortic root is normal in size. The ascending aorta is normal in size. IVC is normal in size and collapses >50% with inspiration. Pericardium There is no pericardial effusion. Other Information Study Quality: Technically Difficult Conclusion Technically difficult study due to poor accoustic windows. Normal LV systolic function. Mild RV dilation with mild reduction in RV function. No significant valvular stenosis or regurgitation. Electronically signed by : Cheryl Enriquez MD 11/24/2024 18:57:39
--- NOTE | 2024-11-24 16:36 | P.DS_ITS ---
General Admission date:: 11/24/24 HPI HPI HPI: This is a 34-year-old male who has a past medical history significant for bronchitis, vitamin D deficiency, and cerebral palsy who presents with a chief complaint of chest pain. Due to patient's symptoms, he presented to the emergency room for evaluation. While in the emergency room, chest x-ray was negative for any acute cardiopulmonary process. Patient's initial troponin was negative. EKG revealed a sinus arrhythmia, QTc of 377, normal axis. EKG failed to reveal any ST segment or T wave abnormalities. Patient did receive nitro while in the emergency room and did have some improvement of his chest pain and shortness of breath. As a result, patient has been admitted for further management. During my evaluation patient, patient states his chest pain started around 1500 hrs. and has been ongoing for the last 8 hours. He reports that he has a left chest wall pain that radiates to the right arm with some tingling, has some mild shortness of breath that was relieved with nitro, and has a ongoing duration. Patient does voice having a family history of heart disease but has no known cardiac complications himself. Patient states he has chronic lymphedema to the right lower extremity and he is denying any PND, orthopnea, lightheadedness, dizziness, fever, chills, rigors, nausea, vomiting, diarrhea. Patient did voice have an ischemic workup while he was in high school but no further cardiac evaluation since then. Additional pertinent vitals obtained include blood glucose of 101. Hospital Course Hospital Course Hospital Course: Carter Feliciano is a 34-year-old male with a medical history significant for obesity who presents with left-sided chest pain with radiation down his right arm and admitted for the same. #Chest pain #GERD ? Presented with acute onset left-sided chest pain with radiation down his right arm. Symptoms have resolved since admission. ? Troponin is normal, EKG without acute ischemic changes. ? ECHO reveals mild RV dilation with mild reduction in RV function. No wall motion abnormalities. ? LDL 58, TSH normal, normoglycemic. ? Cardiology consulted, did not believe chest pain is of cardiac origin given normal ECHO and reproducibility. Will consider outpatient workup if symptoms persist. ? Patient does have a history of acid reflux, has been more significant recently. ? Discharged with Protonix 40 mg 1 empty stomach daily. ? Will follow-up with cardiology within 2 weeks. #Obesity ? BMI 43. Complicates all aspects of care. Exam Data for Last 24 hours Vital signs and Labs for Last 24 Hours: Temp Pulse Resp BP Pulse Ox O2 Del Method 97.7 F 87 18 117/72 97 Room Air 11/24/24 15:55 11/24/24 15:55 11/24/24 15:55 11/24/24 15:55 11/24/24 15:55 11/24/24 15:55 Laboratory Results - last 24 hr 11/23/24 22:55: WBC 9.5, RBC 4.93, Hgb 15.4, Hct 46.2, MCV 93.7, MCH 31.2, MCHC 33.3, RDW 12.3, Plt Count 294, MPV 11.7 H, Neut % (Auto) 63.5, Lymph % (Auto) 26.0, Maries % (Auto) 7.6, Eos % (Auto) 1.9, Baso % (Auto) 0.8, Neut # (Auto) 6.0, Lymph # (Auto) 2.5, Maries # (Auto) 0.7, Eos # (Auto) 0.2, Baso # (Auto) 0.1, Sodium 141, Potassium 4.1, Chloride 104, Carbon Dioxide 30, Anion Gap 11.1, BUN 13, Creatinine 0.90, Estimated Creat Clear 160, Estimated GFR 95, Est GFR (Afric an Amer) 116, Glucose 101 H, Calcium 8.9, Total Bilirubin 0.3, AST 36, ALT 40, Alkaline Phosphatase 75, Troponin I < 0.01, Total Protein 6.9, Albumin 4.2, Globulin 2.7, Albumin/Globulin Ratio 1.6 11/24/24 03:40: Troponin I < 0.01 11/24/24 06:22: WBC 8.5, RBC 4.73, Hgb 14.5, Hct 44.2, MCV 93.4, MCH 30.7, MCHC 32.8, RDW 12.3, Plt Count 277, MPV 11.9 H, Neut % (Auto) 63.4, Lymph % (Auto) 26.6, Maries % (Auto) 7.2, Eos % (Auto) 1.9, Baso % (Auto) 0.7, Neut # (Auto) 5.4, Lymph # (Auto) 2.3, Maries # (Auto) 0.6, Eos # (Auto) 0.2, Baso # (Auto) 0.1, ESR 7, D-Dimer 0.32, Sodium 137, Potassium 4.1, Chloride 105, Carbon Dioxide 27, Anion Gap 9.1, BUN 14, Creatinine 0.70 D, Estimated Creat Clear 122, Estimated GFR 128, Est GFR ( Amer) 154 D, Glucose 98, Calcium 8.6, Troponin I < 0.01, C-Reactive Protein 5.6 H, Triglycerides 111, Cholesterol 142, LDL Cholesterol Direct 58.63 L, VLDL Cholesterol 22, HDL Cholesterol 44, Cholesterol/HDL Ratio 3.2, TSH 1.96 I & O for Last 24 hours: Intake & Output 11/21/24 11/22/24 11/23/24 11/24/24 23:59 23:59 23:59 23:59 Intake Total 200 / 200 Output Total 0 / 0 Balance 200 / 200 Weight 99.79 kg 118.75 kg Constitutional Constitutional: no acute distress and obese *Routine HEENT Exam Head: Present normocephalic Eye: Present EOMI and PERRL ENT: Present mucous membranes moist *Routine Neck Exam Neck: Present supple; Absent lymphadenopathy *Routine Respiratory Exam Respiratory: Present CTA bilaterally *Routine Cardiovascular Exam Cardiovascular: Present RRR *Routine Abdominal Exam Abdominal: Present soft and normoactive bowel sounds; Absent tenderness *Routine Extremities Exam Extremities: Absent cyanosis, clubbing or edema *Routine Skin Exam Skin: Present warm; Absent rash *Routine Neurological Exam Neurological: Present alert and oriented X3 Results Data Completed and Pending Labs on day of discharge: Labs from last 24 hours 11/24/24 11/24/24 11/23/24 06:22 03:40 22:55 WBC 8.5 9.5 RBC 4.73 4.93 Hgb 14.5 15.4 Hct 44.2 46.2 MCV 93.4 93.7 MCH 30.7 31.2 MCHC 32.8 33.3 RDW 12.3 12.3 Plt Count 277 294 MPV 11.9 H 11.7 H Neut % (Auto) 63.4 63.5 Lymph % (Auto) 26.6 26.0 Maries % (Auto) 7.2 7.6 Eos % (Auto) 1.9 1.9 Baso % (Auto) 0.7 0.8 Neut # (Auto) 5.4 6.0 Lymph # (Auto) 2.3 2.5 Maries # (Auto) 0.6 0.7 Eos # (Auto) 0.2 0.2 Baso # (Auto) 0.1 0.1 ESR 7 D-Dimer 0.32 Sodium 137 141 Potassium 4.1 4.1 Chloride 105 104 Carbon Dioxide 27 30 Anion Gap 9.1 11.1 BUN 14 13 Creatinine 0.70 D 0.90 Estimated Creat Clear 122 160 Estimated GFR 128 95 Est GFR ( Amer) 154 D 116 Glucose 98 101 H Calcium 8.6 8.9 Total Bilirubin 0.3 AST 36 ALT 40 Alkaline Phosphatase 75 Troponin I < 0.01 < 0.01 < 0.01 C-Reactive Protein 5.6 H Total Protein 6.9 Albumin 4.2 Globulin 2.7 Albumin/Globulin Ratio 1.6 Triglycerides 111 Cholesterol 142 LDL Cholesterol Direct 58.63 L VLDL Cholesterol 22 HDL Cholesterol 44 Cholesterol/HDL Ratio 3.2 TSH 1.96 DS: Diagnosis Discharge Diagnosis (1) Chest pain: Status: Acute Code(s): R07.9 - Chest pain, unspecified Qualifiers: Chest pain type: unspecified Qualified Code(s): R07.9 - Chest pain, unspecified (2) Angina at rest: Status: Acute Code(s): I20.89 - Other forms of angina pectoris Meds Home Medications and Allergies Home Medications ?Medication ?Instructions ?Recorded ?Confirmed ?Type pantoprazole 40 mg tablet,delayed 40 mg PO DAILY #30 tabs 11/24/24 Rx release (Protonix) New Prescriptions to Start Prescriptions: pantoprazole [Protonix] Melvin Yeung Allergies Allergy/AdvReac Type Severity Reaction Status Date / Time No Known Allergies Allergy Verified 09/22/19 05:17 Discharge Plan Disposition Patient Disposition: Home, Self-Care Condition: Fair Follow up Plan Follow up with: Raymundo Minre PA [Physician Armed Security Officer] - 12/03/24 (please call for appointment) Hermann Saravia DO [Staff Physician] - 12/02/24 10:45 am Prescriptions/Medication Reconciliation: New pantoprazole [Protonix] 40 mg tablet,delayed release (DR/EC) 40 mg PO DAILY Qty: 30 0RF Problem Reconciliation Problems Reviewed?: Yes Patient Discharge Instructions Patient Instructions: DI for Chest Pain Print Language: Ukrainian Providers Primary Care Provider: Provider,Referral Admit Provider: Melvin Yeung Attending Provider: Melvin Yeung
--- NOTE | 2024-11-26 11:29 | SW/DCPLANNER ---
Phoned patient x2. Patient didnt answer and wasnt able to leave a message. Carlos Solorio
== END 2024-11-24 17:51 | disposition home or self-care (01) ==
LOC: ER 11-24 00:13 → 2ND 11-24 00:21
PROVIDERS: Nurse Practitioner Family; Physician Assistant; Admitting Provider Student in an Organized Health Care Education/Training Program; Emergency Provider Emergency Medicine; Visit Provider Student in an Organized Health Care Education/Training Program
DX: R07.9 Chest pain, unspecified (principal); G80.9 Cerebral palsy, unspecified; E66.9 Obesity, unspecified; Z68.41 Body mass index [BMI] 40.0-44.9, adult; Z77.22 Contact with and (suspected) exposure to environmental tobacco smoke (acute) (chronic); I89.0 Lymphedema, not elsewhere classified; K21.9 Gastro-esophageal reflux disease without esophagitis; Z83.6 Family history of other diseases of the respiratory system; Z83.3 Family history of diabetes mellitus; Z82.49 Family history of ischemic heart disease and other diseases of the circulatory system
CPT/HCPCS: 36415; 71046; 80048; 80053; 80061; 84443; 84484; 85025; 85378; 85651; 86140; 93005; 93306; 99285; G0378; J1650

== ENCOUNTER 2024-12-26 11:05 | Emergency (ER) | payer OTHER, SELFPAY ==
[2024-12-26 11:14] VITALS: BP 141/91; PULSE 76; RESP 15; TEMP 36.4; O2SAT 98; BMI 30.4
--- NOTE | 2024-12-26 11:35 | HMH.EDGENADL ---
Discharge Plan Disposition Patient Disposition: Home, Self-Care Condition: Good Prescriptions Prescriptions: New ofloxacin 0.3 % drops 10 drp otic (ear) BID 14 Days Qty: 10 0RF amoxicillin-pot clavulanate 875-125 mg tablet 1 tab PO BID 7 Days Qty: 14 0RF No Action pantoprazole [Protonix] 40 mg tablet,delayed release (DR/EC) 40 mg PO DAILY Qty: 30 0RF Referrals Follow up/Referrals: Giovanni Arredondo III, MD [Staff Physician] - See instructions Provider,MD Maday [Primary Care Provider] - See instructions Activity Restrictions/Add. Instructions Additional Instructions/Restrictions: You have a ruptured left eardrum. You are being prescribed antibiotic drops as well as oral antibiotics. Take these as prescribed. You are also being referred to the ear nose and throat team for follow-up. Call them at this number to schedule an appointment: [phone]. You can take Tylenol and ibuprofen every 6 hours as needed to help with symptoms. If you develop any new or worsening symptoms, such as fever, pain/swelling behind your ear, confusion, or if you become concerned for your health for any reason, return to the emergency department for evaluation. Clinical Impressions Clinical Impression: Eardrum rupture, left Print Language Print Language: Bahamian Discharge ED Provider: Kun Martinez Adult HPI General Chief complaint: Ear Stated complaint: Ear Pain Time Seen by Provider: 12/26/24 11:22 Mode of Arrival: Ambulatory Source of Information: Patient Description of Symptoms (Recalled from ER Triage Doc. by RN): patient states he has had left ear pain for 3 weeks with drainage. he reports it is a stabbing pain and pressure. also reports history of bad teeth History of Present Illness HPI narrative: Carter Feliciano is a 34y male with a history of COPD, cerebral palsy, chronic ear pain who presents to the emergency department for left-sided ear pain. Patient states that as a kid, he had ear tubes put in that response to be permanent, however a few years ago he states that they were unable to find them and he no longer has them. He states that over the last 3 weeks, he has had intermittent sharp left-sided ear pain that worsened last night. He states that while in the shower, he felt a pop in his left ear and started draining pus. The pain worsened after this. He denies any fevers, pain behind his ear. He does note that he has poor dentition and has had some dental pain as well and is not sure if the pain is coming from there and radiating to his ear or vice versa. Related Data Previous Rx's ?Medication ?Instructions ?Recorded pantoprazole 40 mg tablet,delayed 40 mg PO DAILY #30 tabs 11/24/24 release (Protonix) amoxicillin 875 mg-potassium 1 tab PO BID 7 days #14 tabs 12/26/24 clavulanate 125 mg tablet ofloxacin 0.3 % ear drops 10 drp otic (ear) BID 14 days #10 12/26/24 mL Allergies Allergy/AdvReac Type Severity Reaction Status Date / Time No Known Allergies Allergy Verified 12/26/24 11:21 [facility] Disclaimer: The information contained in this section may have been updated after the patient was seen, as this information can be updated by other users. Medical History Vitamin D deficiency Family History Other Family history of COPD (chronic obstructive pulmonary disease) Family history of diabetes mellitus Family history of heart disease Social History Smoking Status: Never smoker second hand exposure: Yes alcohol intake: never current occupational status: unemployed Travel in the last 8 weeks: None Have you lived/traveled outside [place] in past 30 days?: No Contact w/someone who lives/traveled outside [place] past 30 days?: No Exposure to someone with infectious disease in past 14 days?: No Do you have a fever (greater than 100.4 F or 38 C)?: No Have you tested positive for COVID-19: No Exposed to someone with COVID-19 in past 14 days?: No Do you have a sore throat?: No Do you have a cough?: No Do you have any weakness?: No Do you have any diarrhea?: No Are you experiencing any unusual bleeding?: No Do you have any muscle aches/pain?: No Do you have any abdominal pain?: No Are you experiencing loss of taste or smell?: No Other Medical History Have you received the Flu Vaccine for this season: No Have you received the Pneumonia Vaccine: No ROS Obtained: Yes Systems reviewed as appropriate & no additional complaints except as documented Physical Exam General General appearance: alert and in no apparent distress Head Head exam: atraumatic Eye Eye exam: Present normal appearance and other (Perforated left tympanic membrane with small amount of purulent/bloody fluid emanating from the hole. No tenderness over the mastoid area) ENT ENT exam: Present normal external ear exam Neck Neck exam: Present full ROM Chest Chest inspection: Present symmetric chest wall rise Respiratory Respiratory exam: Present normal lung sounds bilaterally; Absent respiratory distress Cardiovascular Cardiovascular exam: Present regular rate and normal rhythm Abdominal Exam Abdominal exam: Present soft; Absent tenderness or guarding exam: Present deferred Extremities Exam Extremities exam: Present normal inspection Back Exam Back exam: Present normal inspection Neurological Exam Neurological exam: Present alert and oriented X3 Psychiatric Psychiatric exam: Present normal affect Skin Skin exam: Present warm and dry Medical Decision Making Medical Records Screening: Per USPSTF and CDC recommendations, given the prevalence of disease in our region, it is our hospital?s policy to screen for HIV and viral Hepatitis for all patients aged 18 and over and those with ongoing risk factors. Erick Inquiry Pt receiving controlled substance: No Vital Signs: 12/26/24 11:14 12/26/24 11:36 Temperature 97.5 F L 98.1 F Temperature Source Oral Pulse Rate 81 Pulse Rate [Left Radial] 76 Respiratory Rate 15 16 Blood Pressure 137/82 Blood Pressure [Left Arm] 141/91 H Blood Pressure Mean [Left Arm] 107 Blood Pressure Source [Left Arm] Automatic Cuff 02 Sat by Pulse Oximetry 98 Oxygen Delivery Method Room Air Medical Decision Narrative: Carter Feliciano is a 34y male with a history of COPD, cerebral palsy, chronic ear pain who presents to the emergency department for left-sided ear pain. Patient states that as a kid, he had ear tubes put in that response to be permanent, however a few years ago he states that they were unable to find them and he no longer has them. He states that over the last 3 weeks, he has had intermittent sharp left-sided ear pain that worsened last night. He states that while in the shower, he felt a pop in his left ear and started draining pus. The pain worsened after this. He denies any fevers, pain behind his ear. He does note that he has poor dentition and has had some dental pain as well and is not sure if the pain is coming from there and radiating to his ear or vice versa. On arrival, patient is hypertensive, afebrile, breathing comfortably on room air with oxygen saturation 98% SpO2. Physical exam, stated above, revealed an overall well-appearing male in no distress. Physical exam, he has poor dentition but no tenderness percussion of his teeth. No evidence of abscess. He has a perforation of the left tympanic membrane with a small amount of purulent/bloody material in the ear canal. Physical exam was grossly unremarkable otherwise Differential diagnosis includes, but is not limited to: Otitis media, perforated tympanic membrane, dental abscess/referred pain, among others. Given patient's physical exam, there is low concern for mastoiditis at this time. CT imaging of the temporal bones was considered but is not indicated. Patient notes that he is supposed to have chronic indwelling ear tubes bilaterally but was told many years ago that they seem to either have fallen out or become dislodged and are no longer present. He states that since then, he has had chronic ear pain that worsened over the last 3 weeks. He was previously followed by ENT and would like to be seen by them again. Today, his physical exam is consistent with a perforated tympanic membrane, however, given he had ear tubes for many years, it is possible that the hole seen on physical exam is the remnant from this, however given he felt increased pressure and a pop with pus draining from the ear afterward, there is enough clinical concern for perforated tympanic membrane from an otitis media and will treat with ofloxacin drops as well as Augmentin. Will refer him to Dr. Arredondo with ENT and encouraged him to call to schedule an appointment. Return precautions were provided. All questions were answered. He was instructed to take Tylenol and ibuprofen to help with pain. He demonstrated understanding and was in agreement this plan. He was then discharged from the emergency department in stable condition Critical Care Critical Care Time Critical Care Time: No
[2024-12-26 11:36] VITALS: BP 137/82; PULSE 81; RESP 16; TEMP 36.7; O2SAT 98
== END 2024-12-26 11:48 | disposition home or self-care (01) ==
PROVIDERS: Emergency Provider Student in an Organized Health Care Education/Training Program
DX: H72.12 Attic perforation of tympanic membrane, left ear (principal)
CPT/HCPCS: 99282